=== PATIENT | female | born 1955 | race Caucasian/White ===

== ENCOUNTER 2018-11-14 11:41 | Inpatient (IN) | payer OTHER ==
[~2018-11-14] VITALS: Ht 167.7 cm; Wt 88.9 kg
[~2018-11-14 11:41] MED LIST: ALEVE 220MG220 MG PO; ALLEGRA 180MG180 MG PO; ALLEGRA ALLERG180 MG PO; ALLEGRA ALLERGY60 MG PO; ALLEGRA60 MG PO; ATROVENT INHALE14 GM IH; AUGMENTIN 875 M1 TAB PO; BENADRYL25 M2 PO; DILAUDID 2MG TAB2 MG PO; FISH OIL1000 MG PO; FLONASE NASAL S16 GM NS; FLOVENT 110MCG7.9 GM IH; FOLIC ACID 40400 MCG PO; HORMONE PATCH; IRON325 MG PO; MEPEREDINE50 MG PO; MUCINEX 60600 MG/TA1 PO; NAPROSYN500 MG PO; PROTONIX 40MG T40 MG PO; PROVENTIL0.09 MG/A1 IH; SENOKOT S 50 MG1 TAB PO; SINGULAIR; SINGULAIR 110 MG/TAB PO; TYLENOL ARTHRI650 M1 PO; ULTRAM 50MG TAB50 MG PO; VITAMIN C500 MG PO; XARELTO10 MG PO; ZOFRAN 4MG T4 MG/TAB PO; ZYRTEC 10MG10 MG PO; [UNRECOGNIZED DRUG - OTHER] NS
[2018-12-20] VITALS (9 sets, daily range): BP systolic 98–138; BP diastolic 50–883; PULSE 52–79; TEMP 98.2–98.3
[2018-12-20] MEDS ORDERED: MULTI VITAMINS1 TAB PO (00:47)
[2018-12-20] MEDS ORDERED: DEMEROL 50M50 MG/TAB PO (00:49)
[2018-12-20] MEDS ORDERED: LEVAQUIN 5500 MG/TA1 PO (00:51)
--- NOTE | 2018-12-20 10:35 | NUR ---
PATIENT BACK IN ROOM 332 POST OP. A&O. VSS. DENIES PAIN. PATIENT C/O SLIGHT NAUSEA. PACU GAVE ZOFRAN AND PHENERGAN. PATIENT HAS PRE-OP SCOPE PATCH ON. RESTING UP IN BED WITH ICE CHIPS AT BEDSIDE. HEAD TO TOE ASSESSMENT WNL. RTK DRESSING IS CD&I WITH ACEWRAP AND TECHNOL BRACE INPLACE. TEDS TO LLE. SCD'S TO BLE. RASMUSSEN TO DEPENDENT DRAINAGE WITH SMALL AMOUNTS OF CLEAR YELLOW URINE NOTED. IV FLUIDS INFUSING VIA PUMP. FAMILY AT BEDSIDE. ORIENTED TO ROOM. CALL LIGHT IN REACH.
--- NOTE | 2018-12-20 11:24 | NUR ---
First visit from the vulcan crewmember. No needs right now.
--- NOTE | 2018-12-20 15:02 | NUR ---
SW and SW student met with patient to discuss discharge planning. Patient lives in [facility] with her David and is independent in ADLs. Patients PCP is Dr Dina Gruber and [facility]. Patient will be going to [facility] for outpatient PT and reports she has all needed equipment at home from her last surgery. Patient has a DPOA at home but did not bring it with her. There are no anticipated discharge needs at this time.
--- NOTE | 2018-12-20 19:10 | NUR ---
Received report from ERICK Robles. Patient is resting in bed laying flat just received scheduled pain medication at shift change from day shift. CPM is on RLE from 0-45 degrees, patient is tolerating well. Denies any concerns or needs at this time, call light is within reach.
--- NOTE | 2018-12-20 20:59 | NUR ---
Assessment completed. Patient is A&O x 4. VSS. Reports pain controlled at this time with scheduled Tylenol, Toradol and Oxycontin. CPM removed from RLE and technol brace applied. Aquacell dressing to right knee is CDI. BLE clemente hose readjusted. Pedal pulses intact. Encouraged ankle pumps. Griffin catheter to D with yellow clear urine draining. Patient reported nausea earlier this afternoon, denied any nausea before ambulating. Does have a history of post-op nausea and vomitting. IVF infusing with intermittent antibiotic. Patient did ambulate approximately 75 feet this evening in the hallway with assist x 1 with walker and gait belt, gait steady. After ambulating patient did have a moderate amount of emesis, prn IV Zofran given. Patient repositioned in bed and BLE scds applied. Bed is in a low position with call light in reach.
--- NOTE | 2018-12-20 21:55 | NUR ---
Patient reports nausea has subsided after emesis and receiving prn IV Zofran. Denies any concerns or needs at this time.
--- NOTE | 2018-12-20 23:56 | NUR ---
Patient has been resting intermittently states she has been unable to really fall asleep yet and has requested Oxycodone for right knee pain. Patient eating a light snack and 1 tablet of Oxycodone given along with prn Benadryl for sleep. Repositioning RLE with pillows.
[2018-12-21 01:32] VITALS: BP 105/60; PULSE 78; TEMP 99
--- NOTE | 2018-12-21 01:33 | NUR ---
RLE clemente hose removed at this time as it does not stay in place and rolls down patient's thigh leaving a liam. Technol brace readjusted at this time. Patient denies any other needs.
--- NOTE | 2018-12-21 03:18 | NUR ---
Patient is resting with eyes closed and even respirations, does not appear to be in any distress. Bed remains in a low position with call light in reach.
[2018-12-21 05:10] VITALS: BP 98/52; PULSE 67; TEMP 98.7
--- NOTE | 2018-12-21 06:05 | NUR ---
Patient has rested intermittently through the night. Pain has been controlled with scheduled PO and IV pain medication along with 1 tablet of prn Oxycodone. Technol brace removed at this time. Aquacell dressing to right knee has a scant amount of drainage noted. Patient has not had anymore emesis or nausea since after ambulating last night, has had small snacks each time she has pain medication. Griffin catheter remains to DD with yellow clear urine draining. IVF infusing with last dose of Vancomycin and then patient will be INT. Denies any concerns or needs at this time, call light is within reach.
[2018-12-21 06:18] LABS: HEMOGLOBIN 11.2 g/dl (12.5-16.0)
[2018-12-21 06:25] LABS: HEMATOCRIT 34.2 % (37.0-47.0)
--- NOTE | 2018-12-21 08:00 | NUR ---
PATIENT IS UP IN BED THIS MORNING. PATIENT IS A&O. VSS. BOWEL SOUNDS ACTIVE ALL FOUR QUADRANTS. PATIENT TOLERATING FOOD & LIQUIDS. PATIENT HAS SOME NAUSEA WITH ACTIVITY, BUT DENIES VOMITING AT THIS TIME. PATIENT PRE-MEDICATED WITH ZOFRAN IV PRIOR TO WORKING WITH PHYSICAL THERAPY. POSITIVE PEDAL PULSES EQUAL BILATERALLY. CAP REFILL <3 SECONDS. CMS INTACT. NON-PITTING EDEMA TO RIGHT KNEE NOTED. SCANT AMOUNTS OF DRAINAGE PRESENT ON RIGHT KNEE AQUACEL DRESSING. RASMUSSEN CATHETER TO DEPENDENT DRAINAGE WITH MODERATE AMOUNTS OF CLEAR PALE YELLOW URINE PRESENT IN RASMUSSEN BAG. IV FLUIDS INFUSING TO LEFT WRIST IV VIA PUMP. PATIENT GIVEN 1 TABLET OF PRN OXYCODONE PRIOR TO WORKING WITH PHYSICAL THERAPY. CALL LIGHT WITHIN REACH. PATIENT DENIES ANY NEEDS AT THIS TIME.
[2018-12-21 08:18] VITALS: BP 109/61; PULSE 63; TEMP 98.5
--- NOTE | 2018-12-21 10:03 | NUR ---
Initial visit; Patient thanked Medical Information Specialist for offering God's blessings and wishing her well.
[2018-12-21 11:21] VITALS: BP 119/65; PULSE 72; TEMP 98.4
--- NOTE | 2018-12-21 13:00 | NUR ---
PATIENT CALLED OUT REQUESTING PAIN MEDICATION. PATIENT GIVEN 1 TABLET OF PRN OXYCODONE. WILL CONTINUE TO MONITOR.
[2018-12-21 15:21] VITALS: BP 151/84; PULSE 85; TEMP 99.6
--- NOTE | 2018-12-21 15:41 | NUR ---
WILLIE GIVEN PRN DOSE OF EXTRA STRENGTH TYLENOL FOR TEMPURATURE OF 99.6 AND A HEADACHE. WILL CONTINUE TO MONITOR.
--- NOTE | 2018-12-21 18:00 | NUR ---
REPORT GIVEN TO ERICK RODRIGUEZ.
[2018-12-21 20:04] VITALS: BP 151/71; PULSE 93; TEMP 99.2
--- NOTE | 2018-12-21 20:34 | NUR ---
Assessment completed. Patient is A&O x 4. VSS, on room air. Pain controlled at this time with scheduled Oxycontin. Marc wrap dressing to RLE, Aquacell dressing underneath is CDI. Pedal pulses intact. LLE clemente hose/BLE scds on. Tolerated supper with no c/o nausea, does report feeling "a little queasy" prn IV Zofran given after patient reported this prior to ambulating. Whitlock catheter to DD with yellow clear urine draining, noted in orders whitlock catheter to be discontinued. Discontinued with no difficulities, balloon intact and pericare provided. INT to left wrist. Up with standby assist with walker in the hallway ambulated 125 feet, gait steady. Technol brace applied to RLE at this time and assisted with repositioning. Denies any concerns or needs at this time. Bed is in a low position with call light in reach.
--- NOTE | 2018-12-21 23:15 | NUR ---
Patient has been resting in bed, denies any need for pain medication at this time and denies any nausea. RLE remains in a technol brace and elevated on pillows. Denies any concerns or needs, call light remains within reach.
[2018-12-22 00:12] VITALS: BP 157/75; PULSE 81; TEMP 98.2
--- NOTE | 2018-12-22 02:25 | NUR ---
Patient ambulated to the bathroom with [facility] assist with walker. Voided with no difficulities. Reported feeling nauseous and requesting prn IV Zofran.
[2018-12-22 04:02] VITALS: BP 150/75; PULSE 82; TEMP 98.9
--- NOTE | 2018-12-22 04:23 | NUR ---
Patient reports nausea is better, however, still has a little at this time. Last pain medication taken was scheduled Oxycontin at 1740. Reports pain to right knee 4/10, more painful when moving around in bed prn Tylenol given at this time with applesauce. Patient ambulated to the bathroom with standby assist with walker, gait steady. Continues to void with no difficulities. Technol brace removed from RLE, Marc wrap has compression remains CDI Aquacell dressing underneath is CDI. Fresh ice pack applied to right knee. Patient denies any additional concerns or needs at this time. Bed remains in a low position with call light in reach.
--- NOTE | 2018-12-22 05:56 | NUR ---
Patient decided to wait on the scheduled 0600 dose of Oxycontin as she reports her pain is well controlled right now and she wants to eat a breakfast before taking in hopes she doesn't become nauseous.
[2018-12-22 06:23] LABS: HEMATOCRIT 33.4 % (37.0-47.0)
--- NOTE | 2018-12-22 08:00 | NUR ---
PATIENT IS A&O AND SITTING UP IN BEDSIDE CHAIR THIS AM. PATIENT C/O BACK PAIN. PATIENT NOW BACK IN BED WITH WARM BLANKET TO BACK. ELEVATED RLE AND ICE PACK INPLACE. GAVE PRN ZOFRAN TO PREVENT NAUSEA. RATES PAIN IN RLE AT 5/10. GAVE SCHEDULED OXYCONTIN. LEFT WRIST IV LEAKING, DC'D AND COVERED WITH GAUZE & COBAN. NOTED VERY MILD RASH TO BACK AND CHEST WHICH PATIENT REPORTS IS NORMAL FOR HER WHEN TAKING NARCOTICS. WILL MONITOR. PATIENT DENIES THAT IT ITCHES OR BOTHERS HER. PATIENT ALSO REPORTS DISCUSSING THIS WITH THIS AM. RTK DRESSING IS CD&I WITH AQUACEL. TEDS TO LLE. ACEWRAP TO RLE. SCD'D CURRENTLY OFF. HEAD TO TOE ASSESSMENT WNL. NO OTHER NEEDS. CALL LIGHT IN REACH.
[2018-12-22 10:49] VITALS: BP 147/51; PULSE 76; TEMP 97.6
[2018-12-22] MEDS ORDERED: XARELTO10 MG PO (14:00)
--- NOTE | 2018-12-22 14:00 | NUR ---
PATIENT REQUESTING TYLENOL, TWO TABS FOR PAIN. RESTING UP IN BED. CALL LIGHT IN REACH.
[2018-12-22] MEDS ORDERED: ROXICODONE 55 MG/TAB PO (14:02)
[2018-12-22] MEDS ORDERED: COLACE 100100 MG/CAP PO (14:03)
[2018-12-22] MEDS ORDERED: ZOFRAN 4MG T4 MG/TAB PO (14:03)
--- NOTE | 2018-12-22 15:15 | NUR ---
AT DESK INQUIRING ABOUT DISCHARGE AFTER SPENDING AN HOUR AND HALF ON PHONE WITH INSURANCE COMPANY. PATIENT SEEMS HESITANT TO DISCHARGE HOME TODAY. NURSING CLARIFIED WITH THE INTENT IS TO DISCHARGE HOME TODAY. PHYSICAL THERAPY AGREES PATIENT IS AMBULATING WELL. CASE MANAGEMENT INVOLVED AND LOOKING INTO INPATIENT STATUS.
--- NOTE | 2018-12-22 16:00 | NUR ---
CASE MANAGEMENT AT BEDSIDE TO EXPLAIN INSURANCE AND DISCHARGE CRITERIA. PATIENT AND UNDERSTAND EDUCATION. PATIENT IS AGREEABLE TO DISCHARGE. SEE DISCHARGE ORDERS.
--- NOTE | 2018-12-22 16:30 | NUR ---
PATIENT DISCHARGING HOME VIA WHEELCHAIR TO PERSONAL VEHICLE WITH . GAVE DISCHARGE INSTRUCTIONS, PRESCRIPTIONS, AIRSTRIPS AND FOLLOW UP APTS. ANSWERED QUESTIONS/CONCERNS. IV ALREADY DC'D. SENT HOME PERSONAL BELONGINGS. PATIENT DISCHARGED.
== END 2018-12-22 16:30 | disposition home or self-care (01) | DRG 470 ==
LOC: JCC 12-20 05:28
PROVIDERS: ADMIT Orthopaedic Surgery
PROC: 0SRC0J9 Replacement of Right Knee Joint with Synthetic Substitute, Cemented, Open Approach (ICD-10-PCS; principal; 2018-12-20 08:00)
DX: M17.11 Unilateral primary osteoarthritis, right knee (principal); Z88.2 Allergy status to sulfonamides; Z88.6 Allergy status to analgesic agent; Z88.5 Allergy status to narcotic agent; Z91.013 Allergy to seafood; J45.909 Unspecified asthma, uncomplicated; Z86.718 Personal history of other venous thrombosis and embolism; Z96.652 Presence of left artificial knee joint
CPT/HCPCS: A4314; A9284; C1713; C1776; J0690; J1885; J2250; J2405; J2550; J2704; J3010; J3370; J7030; J7050; J7120

== ENCOUNTER → 2018-12-08 | Outpatient (CLI) | payer OTHER | LOC: COL.LAB 11:01 | DX: Z01.812 Encounter for preprocedural laboratory examination (principal) ==

== ENCOUNTER → 2023-12-01 | Outpatient (CLI) | payer MEDICARE, BC ==
[~2023-12-01] MED LIST changes: +COLACE 100100 MG/CAP PO; +DEMEROL 50M50 MG/TAB PO; +LEVAQUIN 5500 MG/TA1 PO; +MULTI VITAMINS1 TAB PO; +ROXICODONE 55 MG/TAB PO
== END ==
LOC: COL.LAB 10:33 → COL.RAD 10:40
DX: M79.662 Pain in left lower leg (principal)